=== PATIENT | female | born 1995 | race Caucasian/White ===

== ENCOUNTER 2022-06-15 12:53 | Emergency (ER) | payer SELFPAY ==
[2022-06-15 12:55] VITALS: BP 189/115; PULSE 108; RESP 14; TEMP 37.1; O2SAT 100; BMI 17.9
--- NOTE | 2022-06-15 13:33 | EKG12_ITS ---
Test Reason : CP Blood Pressure : / mmHG Vent. Rate : 111 BPM Atrial Rate : 111 BPM P-R Int : 158 ms QRS Dur : 090 ms QT Int : 364 ms P-R-T Axes : 083 084 044 degrees QTc Int : 495 ms Sinus tachycardia Nonspecific ST and T wave abnormality Abnormal ECG No previous ECGs available Confirmed by ONDINA OCHOA, OUMOU ([id number]), fashion editor SHEY HALL ([id number]) on 06/22/2022 1:00:49 PM Referred By: Mayank Confirmed By:OUMOU NJ MD
--- NOTE | 2022-06-15 13:39 | EX.ED.DYSGE1 ---
HPI History of Present Illness Chief Complaint: Chest Pain Informant: patient Narrative Narrative: 27-year-old female with history of anxiety, anemia and insulin-dependent diabetes mellitus presenting with chest pain. Patient states she has had pressure in her right side of her chest for the past few days but became significantly worse this morning. She notes when she woke up and started moving around. She does Tums do seem to help it get better. Is worse whenever she is sitting or lying still. Does have nausea but no vomiting. Has been having regular bowel movements did not have one today. Denies any urinary symptoms. Last menstrual period was a couple weeks ago and she is not concerned with . She is having some discomfort in her epigastric region. That she attributes that to where she takes her insulin shots. She is having some bloating of her lower abdomen for the past few days. States she had a similar sensation when she was a teenager and she was told was a panic attack. Prior surgical history includes a waqar in her tib/fibula as well as a . No other complaints at this time. [facility] Medical History Anemia Anxiety Asthma Depression Home Medications diazepam 5 mg tablet (Valium) 5 mg PO QHS PRN anxiety #7 tabs 06/15/22 [Rx Last Taken Unknown] sulfamethoxazole 800 mg-trimethoprim 160 mg tablet (Bactrim DS) 1 tab PO BID 7 days #14 tabs 06/15/22 [Rx Last Taken Unknown] Allergy/AdvReac Type Severity Reaction Status Date / Time Penicillins AdvReac Hives Verified 06/15/22 12:57 Social History Smoking Status: Never smoker ROS ROS ED Constitutional Constitutional ED: Denies chills or fever(s) Eyes Eyes: Denies change in vision or diplopia ENT ENT ED: Denies rhinorrhea or sore throat Cardiovascular Cardiovascular: Reports chest pain; Denies palpitations Respiratory/Chest Respiratory/Chest: Denies cough or dyspnea Gastrointestinal Gastrointestinal: Reports abdominal pain and nausea; Denies constipation, diarrhea or vomiting Genitourinary Genitourinary ED: Denies dysuria or hematuria Musculoskeletal Musculoskeletal: Denies arthralgias or myalgias Integumentary Denies rash Neurologic Neurologic: Denies headache(s) or weakness Psychiatric Psychiatric: Reports anxiety; Denies depression EXAM Physical Exam Const Vital Signs: 06/15/22 12:55 06/15/22 13:03 06/15/22 15:27 Temperature 98.7 F Temperature Source Temporal Pulse Rate 108 H 107 H Respiratory Rate 14 20 H Respiratory Effort Normal Non-Labored Blood Pressure 189/115 H 159/121 H Blood Pressure Mean 139 133 Pulse Ox 100 Oxygen Delivery Method Room Air Positive well nourished and well developed General Appearance ED: well developed, NAD and pallor HEENT Reports moist mucous membranes Negative for trauma Eyes PERRL and EOMs intact bilaterally Neck no lymphadenopathy and supple Chest Wall inspection of chest normal and palpation of chest normal Resp normal respiratory effort and clear to auscultation bilaterally Auscultation: Negative for rhonchi or wheezes Cardio regular rate, regular rhythm and no murmurs GI non-tender GI Narrative: No fluid wave or ascites appreciated. Firm and distended abdomen with mass palpable above the level of the umbilicus. Inspection: abdominal distention Auscultation: hypoactive bowel sounds Palpation: soft and mass firm; Negative for guarding Back/Spine no CVA tenderness Extremity General Extremety ED: Negative for edema or tenderness General Extremity: Negative for edema Neuro oriented x3 Motor Exam: Negative for general weakness Psych mental status grossly normal Skin no rashes or lesions noted and no wounds General Skin Exam: pallor MDM MDM MDM Narrative Medical decision making narrative: Patient is evaluated for right-sided chest pain. Going on for couple days but been worse today. Time seems to make it better. On exam she is noted to have a very distended lower abdomen. Its not tender. The distention/mass is firm and goes above the level of the umbilicus. Bedside ultrasound obtained by myself shows fluid. Small amount of hydronephrosis is seen on renal ultrasound however I do not see any free fluid. D-dimer is elevated for the patient at 0.71. Creatinine is minimally elevated at 1.17. CT shows what appears to be a large cystic abdominal pelvic mass which could represent a distended urinary bladder. There is also associated hydronephrosis. In addition there is a 2 cm x 1.9 cm soft tissue density overlying the pubic symphysis anterior midline with a tiny amount of air within it. Does not correlate with anything on physical exam. Patient states she takes Benadryl nightly but has not taken more than 50mg a day. Urinalysis is consistent with inflammation with 500 leukoesterase, 25-50 white blood cells but no bacteria no nitrates. Patient states that she was treated for urinary tract infection about a month ago with Macrobid. She states her symptoms resolved at that time. CT of the chest obtained because of elevated D-dimer and chest discomfort. This is negative for any acute thoracic process. Potassium was found to be low at 2.9. Will be given replacement orally in the emergency room. Falcon catheter was replaced. Likely patient has acute urinary retention however I am not sure why. She will need outpatient urology follow-up. She is informed of these findings. Patient is counseled to stop taking Benadryl as this could be contributing to urinary retention. She will be given a short course of Valium to help with sleep and anxiety for the next few days. Falcon catheter placed. Patient has over 2.5 L out. She is given dose of Valium as she is very anxious after the Falcon catheter and throughout the placement. Case discussed with Dr. Rocha who recommends antibiotics and will follow-up outpatient. He states her diabetes could be the cause of this. Discharged home with Falcon catheter instructions and outpatient follow-up. Patient counseled on return precautions. Lab Data Attestation: I reviewed the patient's lab results. Labs: Laboratory Results - last 24 hr 06/15/22 06/15/22 06/15/22 13:52 13:52 13:52 WBC 7.4 RBC 3.63 L Hgb 10.6 L Hct 30.1 L MCV 82.9 MCH 29.2 MCHC 35.2 RDW Std Deviation 40.6 RDW Coeff of Evelyn 13.7 Plt Count 225 MPV 9.3 Immature Gran % (Auto) 0.300 Neut % (Auto) 61.7 Lymph % (Auto) 27.1 [place] % (Auto) 6.7 Eos % (Auto) 3.9 Baso % (Auto) 0.3 Absolute Neuts (auto) 4.5 Absolute Lymphs (auto) 1.99 Nucleated RBC % 0 D-Dimer Quant (PE/DVT) 0.71 H* Sodium 140 Potassium 2.9 L Chloride 100 Carbon Dioxide 31.0 Anion Gap 9 BUN 17 Creatinine 1.17 H Estim Creat Clear Calc 65.22 Est GFR (MDRD) Af Amer 72 Est GFR (MDRD) Non-Af 59 L BUN/Creatinine Ratio 14.5 Glucose 161 H Lactic Acid Calcium 9.5 Total Bilirubin 0.80 Direct Bilirubin 0.21 AST 17 ALT 22 Alkaline Phosphatase 85 Troponin I High Sens 4 Total Protein 7.9 Albumin 3.9 Globulin 4.0 Lipase 115 TSH 1.89 Urine Color Urine Clarity Urine pH Ur Specific [place] Urine Protein Urine Glucose (UA) Urine Ketones Urine Occult Blood Urine Nitrite Urine Bilirubin Urine Urobilinogen Ur Leukocyte Esterase Urine RBC Urine WBC Ur Squamous Epith Cells Urine Bacteria Urine Mucus Urine Test 06/15/22 06/15/22 13:52 14:40 WBC RBC Hgb Hct MCV MCH MCHC RDW Std Deviation RDW Coeff of Evelyn Plt Count MPV Immature Gran % (Auto) Neut % (Auto) Lymph % (Auto) [place] % (Auto) Eos % (Auto) Baso % (Auto) Absolute Neuts (auto) Absolute Lymphs (auto) Nucleated RBC % D-Dimer Quant (PE/DVT) Sodium Potassium Chloride Carbon Dioxide Anion Gap BUN Creatinine Estim Creat Clear Calc Est GFR (MDRD) Af Amer Est GFR (MDRD) Non-Af BUN/Creatinine Ratio Glucose Lactic Acid 1.1 Calcium Total Bilirubin Direct Bilirubin AST ALT Alkaline Phosphatase Troponin I High Sens Total Protein Albumin Globulin Lipase TSH Urine Color Yellow Urine Clarity Clear Urine pH 6.0 Ur Specific [place] 1.010 Urine Protein 15 H Urine Glucose (UA) 250 H Urine Ketones Negative Urine Occult Blood Negative Urine Nitrite Negative Urine Bilirubin Negative Urine Urobilinogen Normal Ur Leukocyte Esterase 500 H Urine RBC 0 SEEN Urine WBC 25-50 SEEN Ur Squamous Epith Cells 0-5 SEEN Urine Bacteria 0 SEEN Urine Mucus 0 SEEN Urine Test Negative Radiography Diagnostic Testing: Clinical Impression(s) from Imaging Studies Abdomen/Pelvis CT 06/15/22 15:00 IMPRESSION: Large cystic abdominal pelvic mass as described. This may represent a distended urinary bladder. Repeat examination following bladder catheterization recommended. Moderate degree of bilateral hydronephrosis and hydroureter. Electronically Signed: Tyler Cooley MD at 15:42 EDT , Chest CTA 06/15/22 15:00 IMPRESSION: Normal CTA chest examination, without a demonstrated pulmonary embolism or arterial dissection. Electronically Signed: Tyler Cooley MD at 15:43 EDT , Rhythm Strip Rhythm Strip: Sinus Tach Rate: 111 Ectopy: None EKG Initial EKG: Attestation: I personally reviewed and interpreted this EKG as follows: Interpretation: Sinus Tachycardia Comments: Sinus tachycardia at a rate of 111 Normal axis Normal intervals Normal ST segments Discharge Plan Triage Chief Complaint: Chest Pain ED Provider: Emily Talley Dx/Rx/DC Orders Clinical Impression: Chest pain of uncertain etiology, Hydronephrosis due to obstruction of bladder, Acute urinary retention, Elevated serum creatinine Instructions: ED Chest Pain, Uncertain Cause, ED Falcon Catheter, Care, ED Urinary Retention, Female Prescriptions: New diazepam [Valium] 5 mg tablet 5 mg PO QHS PRN (Reason: anxiety) Qty: 7 0RF sulfamethoxazole-trimethoprim [Bactrim DS] 800-160 mg tablet 1 tab PO BID 7 Days Qty: 14 0RF Primary Care Provider: Care Physician,No Primary Referrals: Fili Rocha MD [STAFF PHYSICIAN] - 3-5 Days Care Physician,No Primary [Primary Care Provider] - Disposition Disposition: Home, Self Care
[2022-06-15 14:07] LABS: Absolute Lymphocyte Count 1.99 X10^3/uL (0.83-4.51); Absolute Neutrophil Count 4.5 X10^3/uL (2.0-7.7); Basophil# 0.02 X10^3/uL; Basophil% 0.3 % (0-1); Eosinophil# 0.29 X10^3/uL; Eosinophils% 3.9 % (0-5); Hematocrit 30.1 % (37-47); Hemoglobin 10.6 g/dL (12.0-15.0); Lymphocyte # 1.99 X10^3/ul (0.83-4.51); Lymphocyte % 27.1 % (19-41); Mean Corp Hgb Conc 35.2 g/dL (32-36); Mean Corpuscular Hgb 29.2 pg (27.0-32.0); Mean Corpuscular Volume 82.9 fL (81-99); Mean Platelet Vol. 9.3 fl (6.2-12.0); Monocyte# 0.49 X10^3/uL; Monocyte% 6.7 % (0-10); NRBC Flagged by Analyzer 0 % (0-5); Neutrophil # 4.54 X10^3/uL (2.7-7.7); Neutrophil % 61.7 % (47-70); Platelet Count 225 K/mm3 (150-450); RBC Distribution Width CV 13.7 % (11.6-14.6); RBC Distribution Width SD 40.6 fl (35.1-43.9); Red Blood Count 3.63 M/mm3 (4.2-5.4); White Blood Count 7.4 K/mm3 (4.4-11.0)
[2022-06-15 14:20] LABS: D-Dimer Quantitative (DVT/PE) 0.71 FEU/ug/m (0.27-0.49)
[2022-06-15 14:29] LABS: AST(SGOT) 17 U/L (15-37); Alanine Aminotransfer ALT/SGPT 22 U/L (13-56); Albumin, Serum 3.9 g/dL (3.2-5.0); Alkaline Phosphatase 85 U/L (45-117); Anion Gap 9 (5-15); BUN 17 mg/dL (7-18); BUN/Creat Ratio 14.5 RATIO (10-20); Bilirubin, Direct 0.21 mg/dL (0.00-0.30); Calcium,Total 9.5 mg/dL (8.5-10.1); Chloride 100 mmol/L (98-107); Creatinine, Serum 1.17 mg/dL (0.55-1.02); EST Glomerular Filtration Rate 59 mL/min (>60); Est Glom Filt Rate - Afr Amer 72 mL/min (>60); Estimated Creatinine Clearance 65.22 ml/min; Glucose 161 mg/dL (74-106); Lactic Acid 1.1 mmol/L (0.4-1.9); Lipase 115 U/L (73-393); Potassium 2.9 mmol/L (3.5-5.1); Protein, Total 7.9 g/dL (6.4-8.2); Sodium Level 140 mmol/L (136-145); Thyroid Stim Hormone (TSH) 1.89 uIU/mL (0.358-3.74); Troponin-I HS 4 pg/mL (3.0-54.0)
[2022-06-15 14:46] LABS: Bacteria 0 SEEN /hpf (None Seen); Mucous, Urine 0 SEEN /hpf (<or=2+); Red Blood Cells-Urine 0 SEEN /hpf (0-5)
[2022-06-15 14:58] LABS: Color, Urine Yellow (Yellow); Glucose, Dipstick 250 mg/dl (Normal); Ketone-Dipstick Negative (Negative); Leukocyte Esterase-Dipstick 500 /ul (Negative); Nitrite-Dipstick Negative (Negative); Occult Blood-Urine Negative /ul (Negative); Protein-Dipstick 15 mg/dl (Negative); Urine Bilirubin Dipstick Negative (Negative); Urine Clarity Clear (Clear); Urine Urobilinogen Normal (Normal)
--- NOTE | 2022-06-15 15:00 | CT_ITS ---
STUDY: CT ABDOMEN AND PELVIS WITH CONTRAST REASON FOR EXAM: Female, 27 years old. Abdominal distension, ? Mass RADIATION DOSAGE (If Supplied By Facility): CTDIvol = ( 10.61 ) mGy, DLP = ( 1012.67 ) mGycm TECHNIQUE: Transaxial images were obtained from the dome of the diaphragm to the symphysis pubis without oral contrast. IV 100mL Isovue-370 was administered. Sagittal and coronal images were reconstructed. Individualized dose optimization techniques were used for this CT. COMPARISON: None. FINDINGS: The visualized lung bases are unremarkable. The visualized portions of the heart are within normal limits. Normal liver. Normal gallbladder and extrahepatic biliary system. There is mild splenomegaly. Normal pancreas. Normal bilateral adrenal glands. Moderate degree of bilateral hydronephrosis and hydroureter. Normal visualized stomach. Normal small intestine. Normal colon. The appendix is visualized and appears normal. Normal abdominal aorta. Normal inferior vena cava. Normal retroperitoneum. There is a 15.4 cm x 13 cm x 23 cm cystic mass in the pelvis extending into the lower abdomen. A normal urinary bladder is not seen. This may represent a distended urinary bladder. Repeat examination following bladder catheterization recommended. Small follicle is seen in the right ovary. There is a 2 cm x 1.9 cm rounded soft tissue density overlying the symphysis pubis in the anterior midline with a tiny amount of air within it. Clinical correlation recommended. Normal osseous structures. CT/Abdomen/Pelvis W IV Cont ONLY IMPRESSION: Large cystic abdominal pelvic mass as described. This may represent a distended urinary bladder. Repeat examination following bladder catheterization recommended. Moderate degree of bilateral hydronephrosis and hydroureter. Electronically Signed: Tyler Cooley MD at 15:42 EDT ,
--- NOTE | 2022-06-15 15:00 | CT_ITS ---
STUDY: CTA CHEST REASON FOR EXAM: Female, 27 years old. Chest pain, elevated dimer RADIATION DOSAGE (If Supplied By Facility): CTDIvol = ( 10.61 ) mGy, DLP = ( 1012.67 ) mGycm TECHNIQUE: The examination was performed with the intravenous administration of IV 100mL Isovue-370. Post-processing of the angiographic images was performed, with multiplanar reformation and 3D reconstruction. Individualized dose optimization techniques were used for this CT. COMPARISON: None. FINDINGS: Normal enhancement of the main pulmonary artery and right and left pulmonary arteries. Normal enhancement of the bilateral peripheral pulmonary arteries. There is no demonstrated pulmonary embolism. Normal thoracic aorta and visualized great vessels. There is no demonstrated aortic dissection. Normal heart and pericardium. Normal mediastinum. Normal hilar regions. Normal visualized trachea and bronchi. The lungs are well expanded. Normal pulmonary parenchyma. Normal pleura. Normal chest wall structures. Normal osseous structures. Bilateral hydronephrosis and hydroureter. CT/CTA Chest W/WO Contrast IMPRESSION: Normal CTA chest examination, without a demonstrated pulmonary embolism or arterial dissection. Electronically Signed: Tyler Cooley MD at 15:43 EDT ,
[2022-06-15 15:07] LABS: Internal QC Validated? YES +Cl - CLEAR BKGD; Pregnancy, Urine Negative Negative
[2022-06-15 15:14] LABS: Squamous Epithelial Cells - UA 0-5 SEEN /hpf (5-10); White Blood Cells 25-50 SEEN /hpf (0-5)
[2022-06-15 15:27] VITALS: BP 159/121; PULSE 107; RESP 20
--- NOTE | 2022-06-15 16:03 | CM.ED ---
SW Note SW met with patient and patient's . Patient voiced they moved here from [place] and [place]. Patient's said that he got a job at [employer] and they are moving to [place]. Patient said that she will have her 's insurance on Monday. SW encouraged patient to apply for [place] medicaid. SW provided patient with list of [facility] and [facility] Physician List for reference. SW remains available for any additional needs. Plan: Provided patient with PCP information Felicia DONATO
[2022-06-15 16:30] VITALS: BP 157/109; PULSE 110; RESP 16; O2SAT 97
[2022-06-15] MEDS: Potassium Chloride Oral Tablet 20 MEQ 40 MEQ PO (16:32)
[2022-06-15] MEDS: Smz/Tmp Ds Tablet 1 TABLET PO (16:47)
[2022-06-15] MEDS: diazePAM 5 MG Tablet 2.5 MG PO (16:48)
[2022-06-15 17:10] VITALS: BP 143/105; PULSE 110; RESP 16; TEMP 36.7; O2SAT 100
== END 2022-06-15 17:50 | disposition home or self-care (01) ==
PROVIDERS: Emergency Provider Emergency Medicine; Visit Provider Emergency Medicine
DX: R07.9 Chest pain, unspecified (principal); N32.0 Bladder-neck obstruction; N13.30 Unspecified hydronephrosis; F41.9 Anxiety disorder, unspecified; R33.9 Retention of urine, unspecified; R79.89 Other specified abnormal findings of blood chemistry
CPT/HCPCS: 51702; 71275; 74177; 80048; 80076; 81001; 81025; 83605; 83690; 84443; 84484; 85025; 85379; 87077; 87086; 87088; 93005; 99285; Q9967; A4216

== ENCOUNTER 2022-06-16 11:01 | Emergency (ER) | payer MEDICAID, SELFPAY ==
[2022-06-16 11:02] VITALS: BP 140/107; PULSE 132; RESP 20; TEMP 36.6; O2SAT 100; BMI 17.2
--- NOTE | 2022-06-16 11:36 | CM.ED ---
Social Work Note Reason for Referral: NO PCP SW reviewed chart and no PCP listed for pt. SW noted that Felicia VICENTE saw pt yesterday in the ED and provided pt with PCP/[facility] and [facility] Physician list. Felicia VICENTE also spoke with pt regarding insurance. Per notes, pt is to have her 's insurance on Monday. Roslyn Lott WHARF WORKER, [employer] SALESPERSON
--- NOTE | 2022-06-16 11:39 | EDS_ITS ---
HPI History of Present Illness Chief Complaint: Other, Pain/Inj Detail of Chief Complaint: Falcon is causing irritation Informant: patient and spouse/S.O. Onset/Context/Timing Onset: Today and Yesterday Context: Sudden Onset Timing: Continuous Quality: Pain due to Falcon Location: Urethra Current Severity: Moderate Maximum Severity: Severe Worsened by: Movement Relieved by: Nothing Associated Symptoms Associated Symptoms: Blood in urine Narrative Narrative: Patient is a 27-year-old visiting from [place] who presents with pain due to Falcon and blood in her urine. She was seen yesterday. She had significant work-up. She was referred to urology. She states urology would not see her since she is from out of town and has [id number] insurance. She denies fever, chills night sweats. She denies cardiac respiratory symptoms. She does complain of pain because of Falcon and blood in her urine. Apparently the urine was darker red and present color. Has the color of a white zinfandel. She denies nausea, vomiting diarrhea. She denies change in bowels. Prior similar symptoms: Yes Recent Illness/Hospitalization: Yes PFSH [facility] Medical History Anemia Anxiety Asthma Depression Home Medications diazepam 5 mg tablet (Valium) 5 mg PO QHS PRN anxiety #7 tabs 06/15/22 [Rx Last Taken Unknown] sulfamethoxazole 800 mg-trimethoprim 160 mg tablet (Bactrim DS) 1 tab PO BID 7 days #14 tabs 06/15/22 [Rx Last Taken Unknown] Allergy/AdvReac Type Severity Reaction Status Date / Time Penicillins AdvReac Hives Verified 06/16/22 11:04 Social History (Updated 06/16/22 @ 11:[address] Antoni Lombardo MD) household members: significant other Smoking Status: Never smoker substance use type: does not use ROS ROS ED Constitutional Constitutional ED: Denies chills, fever(s), subjective, sweats or weight loss Eyes Eyes: Denies blurry vision, change in vision or diplopia ENT ENT ED: Denies ear pain, rhinorrhea or sore throat Cardiovascular Cardiovascular: Denies chest pain or palpitations Respiratory/Chest Respiratory/Chest: Denies cough, dyspnea or dyspnea on exertion Gastrointestinal Gastrointestinal: Denies abdominal pain, nausea or vomiting Genitourinary Genitourinary ED: Reports hematuria and other Details: Discomfort due to Falcon ; Denies dysuria or urinary frequency Musculoskeletal Musculoskeletal: Denies arthralgias, back pain, myalgias or neck pain Psychiatric Psychiatric: Reports anxiety Hematologic/Lymphatic Hematologic/Lymphatic: Reports systems reviewed and no addt'l complaints, except as documented EXAM Physical Exam Const Vital Signs: 06/16/22 11:02 Temperature 98 F Temperature Source Temporal Pulse Rate 132 H Respiratory Rate 20 H Blood Pressure 140/107 H Blood Pressure Mean 118 Pulse Ox 100 Positive well nourished and well developed Constitutional Narrative: Patient began to cry when she was explaining to me how bad her pain was General Appearance ED: well developed and NAD; Negative for cyanotic, diaphoretic or pallor HEENT Reports moist mucous membranes HEENT Narrative: Ears normal. Nares patent. Negative for trauma or tenderness Eyes PERRL and EOMs intact bilaterally General Eye ED: Negative for pale conjunctiva or scleral icterus Neck no lymphadenopathy, supple and no JVD Resp normal respiratory effort and clear to auscultation bilaterally Cardio regular rhythm, S1 normal heart sound, S2 normal heart sound and no murmurs Rate: tachycardic Back/Spine no CVA tenderness Extremity normal to inspection General Extremety ED: Negative for edema or tenderness General Extremity: Negative for edema Neuro oriented x3, CN's II-XII intact bilaterally and no sensory deficits noted Sensorium / Orientation: alert Motor Exam: strength 5/5 throughout Psych Psych Narrative: Patient is tearful and slightly histrionic Skin no rashes or lesions noted, no wounds and skin turgor normal General Skin Exam: Negative for jaundice or pallor MDM MDM MDM Narrative Medical decision making narrative: Reviewed records from yesterday. Patient was informed that the Falcon cannot be removed because she has dilation of her kidneys, ureter, the tube between her kidneys and bladder because she is not able to urinate. Furthermore she was told that her renal function is slightly abnormal due to the inability to urinate. She allowed the nurse to irrigate the Falcon. She would not allow the nurse to advance the Falcon. Nurse informed that she would not allow her to apply the Lidoderm Urojet on the urethra. She states it does not work. Patient was informed I have nothing else to offer at this time. She was informed she does not have a urinary tract infection. She was informed she should follow-up with a urologist in [place] since she is from [place]. She was informed that this is very important nakul use she has a significant problem which needs to be worked up and can be worked up as an outpatient. Lab Data Labs: Laboratory Results - last 24 hr 06/16/22 06/16/22 06/16/22 11:30 11:50 11:50 WBC 8.0 RBC 3.93 L Hgb 11.4 L Hct 31.8 L MCV 80.9 L MCH 29.0 MCHC 35.8 RDW Std Deviation 39.2 RDW Coeff of Evelyn 13.4 Plt Count 209 MPV 9.4 Immature Gran % (Auto) 0.200 Neut % (Auto) 69.5 Lymph % (Auto) 19.7 [place] % (Auto) 7.2 Eos % (Auto) 3.2 Baso % (Auto) 0.2 Absolute Neuts (auto) 5.6 Absolute Lymphs (auto) 1.58 Nucleated RBC % 0 Sodium 135 L Potassium 3.3 L Chloride 98 Carbon Dioxide 30.0 Anion Gap 7 BUN 12 Creatinine 1.33 H Estim Creat Clear Calc 55.08 Est GFR (MDRD) Af Amer 62 Est GFR (MDRD) Non-Af 51 L BUN/Creatinine Ratio 9.0 L Glucose 264 H Calcium 9.3 Urine Color Red Urine Clarity Cloudy Urine pH 6.5 Ur Specific [place] 1.015 Urine Protein 500 H Urine Glucose (UA) 50 H Urine Ketones 5 H Urine Occult Blood 250 H Urine Nitrite Positive H Urine Bilirubin Negative Urine Urobilinogen Normal Ur Leukocyte Esterase 100 H Urine RBC > 100 SEEN Urine WBC 0-5 SEEN Ur Squamous Epith Cells 0 SEEN Urine Bacteria 0 SEEN Urine Mucus 0 SEEN Discharge Plan Triage Chief Complaint: Other, Pain/Inj ED Provider: [employer] Dx/Rx/DC Orders Clinical Impression: Hydronephrosis due to obstruction of bladder, Elevated serum creatinine, Gross hematuria, Pain in urethra Prescriptions: No Action diazepam [Valium] 5 mg tablet 5 mg PO QHS PRN (Reason: anxiety) Qty: 7 0RF sulfamethoxazole-trimethoprim [Bactrim DS] 800-160 mg tablet 1 tab PO BID 7 Days Qty: 14 0RF Primary Care Provider: Care Physician,No Primary Referrals: Care Physician,No Primary [Primary Care Provider] - Activity Restrictions/Additional Instructions: You need to contact either [facility] or [facility] for referral to urology. Disposition Disposition: Home, Self Care
[2022-06-16 11:41] LABS: Bacteria 0 SEEN /hpf (None Seen); Mucous, Urine 0 SEEN /hpf (<or=2+); Squamous Epithelial Cells - UA 0 SEEN /hpf (5-10)
[2022-06-16 11:44] LABS: Color, Urine Red (Yellow); Glucose, Dipstick 50 mg/dl (Normal); Ketone-Dipstick 5 mg/dl (Negative); Leukocyte Esterase-Dipstick 100 /ul (Negative); Nitrite-Dipstick Positive (Negative); Occult Blood-Urine 250 /ul (Negative); Protein-Dipstick 500 mg/dl (Negative); Specific Gravity, Urine 1.015 (1.002-1.030); Urine Bilirubin Dipstick Negative (Negative); Urine Clarity Cloudy (Clear); Urine Urobilinogen Normal (Normal); Urine pH 6.5 (5.0 - 8.0)
--- NOTE | 2022-06-16 11:45 | NURSING ---
Noel irrigated without difficulty, no clots expressed. Pt crying, anxious, stating has had several panic attacks since noel was put in. Not allowing this RN to manipulate positioning of the noel at this time. Dr. Lombardo made aware.
[2022-06-16 11:50] LABS: Red Blood Cells-Urine > 100 SEEN /hpf (0-5); White Blood Cells 0-5 SEEN /hpf (0-5)
[2022-06-16 12:08] LABS: Absolute Lymphocyte Count 1.58 X10^3/uL (0.83-4.51); Absolute Neutrophil Count 5.6 X10^3/uL (2.0-7.7); Basophil# 0.02 X10^3/uL; Basophil% 0.2 % (0-1); Eosinophil# 0.26 X10^3/uL; Eosinophils% 3.2 % (0-5); Hematocrit 31.8 % (37-47); Hemoglobin 11.4 g/dL (12.0-15.0); Lymphocyte # 1.58 X10^3/ul (0.83-4.51); Lymphocyte % 19.7 % (19-41); Mean Corp Hgb Conc 35.8 g/dL (32-36); Mean Corpuscular Volume 80.9 fL (81-99); Mean Platelet Vol. 9.4 fl (6.2-12.0); Monocyte# 0.58 X10^3/uL; Monocyte% 7.2 % (0-10); NRBC Flagged by Analyzer 0 % (0-5); Neutrophil # 5.55 X10^3/uL (2.7-7.7); Neutrophil % 69.5 % (47-70); Platelet Count 209 K/mm3 (150-450); RBC Distribution Width CV 13.4 % (11.6-14.6); RBC Distribution Width SD 39.2 fl (35.1-43.9); Red Blood Count 3.93 M/mm3 (4.2-5.4)
[2022-06-16 12:15] LABS: Anion Gap 7 (5-15); BUN 12 mg/dL (7-18); Calcium,Total 9.3 mg/dL (8.5-10.1); Chloride 98 mmol/L (98-107); Creatinine, Serum 1.33 mg/dL (0.55-1.02); EST Glomerular Filtration Rate 51 mL/min (>60); Est Glom Filt Rate - Afr Amer 62 mL/min (>60); Estimated Creatinine Clearance 55.08 ml/min; Glucose 264 mg/dL (74-106); Potassium 3.3 mmol/L (3.5-5.1); Sodium Level 135 mmol/L (136-145)
--- NOTE | 2022-06-16 12:38 | ED.RN ---
Patient upset in room. RN states Dr. Lombardo has ordered a Urojet lidocaine to try to minimize pain. Pt tearful in bed. Pt states she has had the urojet before and does not help. Rn stated she cannot have the noel out due to the amount she is retaining in her bladder. Pt continues to be upset requesting to speak to doctor.
== END 2022-06-16 13:20 | disposition home or self-care (01) ==
PROVIDERS: Emergency Provider Emergency Medicine; Visit Provider Emergency Medicine
DX: T83.84XA Pain due to genitourinary prosthetic devices, implants and grafts, initial encounter (principal); N13.30 Unspecified hydronephrosis; R79.89 Other specified abnormal findings of blood chemistry; R31.0 Gross hematuria
CPT/HCPCS: 80048; 81001; 85025; 87077; 87086; 87088; 87186; 99283; A4216